=== PATIENT | female | born 1965 | race Caucasian/White ===

== ENCOUNTER 2021-07-02 13:59 | Inpatient (IN) | payer OTHER ==
[~2021-07-02] VITALS: Ht 172.7 cm; Wt 105.6 kg
--- NOTE | ~2021-07-02 | DS ---
[facility] [address], [place] [address] Draft ADMISSION DATE: 07/02/2021 DISCHARGE DATE: 07/07/2021 REASON FOR ADMISSION: This 56-year-old white woman is admitted with small-bowel obstruction. HISTORY OF PRESENT ILLNESS: The patient lives in [place], having moved here from [place] a number of weeks ago. She works at a [email or web address]. The patient has a distant history of ileocolectomy at age 16 for what was described as Crohn disease. She did not have extensive medical therapy after that due to numerous social disruptions at that time. A year ago in [place], she had a bowel obstruction in the distal small bowel at the ileocolic anastomosis. From everything I can gather she was treated conservatively ultimately undergoing colonoscopy with dilation of the stricture. She was postulated not to have had Crohn disease as she had not had ongoing therapy since that time. She now presents with nausea, vomiting and abdominal distention. A CT scan finding showing small bowel obstruction likely located at the ileocolic anastomosis from the past. Special note is made of very dense changes at that site consistent with anastomotic clips. PERTINENT PHYSICAL EXAMINATION: GENERAL: Somewhat obese white woman, BMI 35.4. NECK: Trachea midline. CHEST: Clear, nasogastric tube decompression of bilious fluid. ABDOMEN: A low paramedian incision is noted on the right side. She did not have generalized peritonitis. There is mild tenderness in the right lower abdomen. LABORATORY STUDIES: Showed a white count of 11.7, hematocrit 41.0, platelets 361,000. HOSPITAL COURSE: She was admitted, given intravenous fluid resuscitation, parental pain medication, was started on hydrocortisone 100 mg IV q.8 hours on the presumption this may represent a Crohn related stricture. Notes from her hospitalization in [place] were ultimately obtained. Unfortunately, pathology report and operative report were never forwarded. The patient had persistent abdominal pain and findings consistent with obstruction but improved over time. She was given prophylaxis against deep venous thrombosis on the basis of increased risk of thrombotic complications related to inflammatory bowel disease. A CRP had been obtained, which was greater than 5 (five times normal than PATIENT NAME: ROBBI MARTÍNEZ DISCHARGE SUMMARY DATE OF : 65 REPORT #: [id number] PHYSICIAN: KATHY DAVIDSON MD PCP: TAWANNA SAUCEDO MD REPORT IS CONFIDENTIAL AND NOT TO BE RELEASED WITHOUT AUTHORIZATION [facility] [address], [place] [address] Draft usual). Notably her COVID test was negative. Liver enzymes were normal. Renal function normal. Subsequent imaging studies showed improvement of her obstructive process. A small-bowel follow-through was obtained which showed passage of contrast through the entire small bowel and into the colon and showing the area of anastomotic stricture. It did not appear to be lengthy and narrowed and may represent a stricture from scarring or mechanical means rather than inflammatory lesion that would be more consistent with Crohn disease. She was advanced in her diet, ultimately to a low fiber diet which she tolerated well. By day of discharge, she is ambulating well, tolerating a low-fiber diet, is taking prednisone 20 mg daily and mesalamine 800 mg p.o. t.i.d. Ulcer prophylaxis with Protonix was also undertaken. It is my intention that she undergo colonoscopy in a few weeks down the road to better characterize the ileocolic anastomosis, specifically to assess for active Crohn disease versus simple scarring or mechanical obstruction otherwise. Balloon dilation had been undertaken in [place] a year ago and was apparently durably beneficial. Although this is an option, I think it is more likely she will need additional resection of the ileocolic anastomosis and perhaps application of a site and anastomosis. We have discussed this in detail. At discharge, she is recommended to maintain a low-fiber diet for the time being. I will be seen back in the office in about four weeks at which point, we will schedule for colonoscopy. If she has symptoms that recur in the meantime, she will let me know. I have emphasized to her it is important that she maintain Protonix while she is taking the Prilosec and she will be maintaining mesalamine in the meantime. DISCHARGE MEDICATIONS: 1. Include Tylenol 1000 mg p.o. q.6 hours as needed for pain #60. 2. Protonix, Pantoprazole 40 mg p.o. daily #30, refill 4. 3. Mesalamine (Delzicol 400 mg tablets two tablets p.o. t.i.d.) . 4. Prednisone 20 mg daily for two weeks, 10 mg daily for two weeks, then 10 mg every other day and then discontinue. She will continue with sertraline 25 mg p.o. daily and will discontinue Naprosyn. DISCHARGE DIAGNOSES: 1. 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 2. History of ileocolectomy, age 16, [place], presumably related to Crohn disease. 3. History of small bowel obstruction one year ago requiring colonoscopy balloon dilation of anastomosis without treatment for Crohn disease. PATIENT NAME: ROBBI MARTÍNEZ DISCHARGE SUMMARY DATE OF : 65 REPORT #: [id number] PHYSICIAN: KATHY DAVIDSON MD PCP: TAWANNA SAUCEDO MD REPORT IS CONFIDENTIAL AND NOT TO BE RELEASED WITHOUT AUTHORIZATION [facility] [address] [place], [place] [address] Draft 4. History of thyroid nodules (as yet unevaluated by me). MD FRANKLIN Willis/ROLANDO /[id number] cc: MD Dwight Omalley MD Copies: TAWANNA SAUECDO MD, WILLIAM S MD ~ PATIENT NAME: ROBBI MARTÍNEZ DISCHARGE SUMMARY DATE OF : 65 REPORT #: [id number] PHYSICIAN: KATHY DAVIDSON MD PCP: TAWANNA SAUCEDO MD REPORT IS CONFIDENTIAL AND NOT TO BE RELEASED WITHOUT AUTHORIZATION
[2021-07-02] MEDS ORDERED: ZOLOFT25 MG PO (20:22)
--- NOTE | 2021-07-02 21:00 | NUR ---
PT HOB ELEVATED . ON ROOM AIR, LUNGS CLEAR BILAT, NO COUGH NOTED AT THIS. TIME. R NARE NGT TO LIWS, DRAINING BROWN THICK DRAINAGE. PT COOPERATIVE, NPO, DOES OWN MOUTH CARE. ABD SOFT, AMY BOWEL TONES AUSCULTATED. IVF INFUSING LAC, EDEMA TO LE, LELEVATED. COOPERATIVE. USES CALL LIGHT
--- NOTE | 2021-07-02 21:12 | NUR ---
MEDICATED WITH DILAUDID 0.5MG IV 08/[address] LETY YUSUF
--- NOTE | 2021-07-02 22:29 | NUR ---
Dr Aguiar called via phone med clarification. pt received solucortef 100mg IV in ED at 1955, and new orders to give at 0 were written again. "No, dont give it now, give 8 hrs after first dose was given", Talked to Donna Telepharmacist via phone and order relied, order changed as per clarification.
--- NOTE | 2021-07-02 22:42 | NUR ---
MEDICATED WITH BENADRYL 25MG IV C/O INSOMNIA
--- NOTE | 2021-07-02 23:47 | NUR ---
IN TO ASSIST PT TO THE TOILET, SBA IV POLE, NG TUBE AND SUCTION REMAINS IN PLACE, NO FURTHER NEEDS AT THIS TIME
--- NOTE | 2021-07-03 01:11 | NUR ---
PT ON ROOM AIR, R NARE NGT TO LIWS, DRAINING SMALL AMOUNT OF BROWN THICK DRAINAGE. NO FURTHER C/O ABD PAIN, NO EMESIS, IVF INFUSING W/O PROBLEMS. SCDS IN PLACE, CALL LIGHT AT HANDS REACH
--- NOTE | 2021-07-03 02:29 | NUR ---
AWAKE, BENADRYL PARTIALLY EFFECTIVE GIVEN EARLIER FOR INSOMNIA. C/O 10/23 ABD PAIN, MEDICATED WTIH TORADOL 30MG IV PER PAIN. ON ROOM AIR, LUNGS CLEAR, RNARE NGT TO LIWS, DRAINING SMALL AMOUNT OF BROWINING RED DRAINAGE. SCDS IN PLACE, IVF INFUSING, NO EMESIS. ON CLEAR LIQUIDS, ICE CHIPS GIVE, TOLERATING WELL
--- NOTE | 2021-07-03 04:30 | NUR ---
Pt has slept off and on, on room air, R nare NGT to LIWS draining dark brown/reddish thick drainage. c/o abd pain, ilya, tender, soft, was medicated with toradol and dilaudid with good pain relief. IVF infusing w/o problems, scds in place, Up to br with 1PSBA, voided QS yellow urine and back to bed. tolerated well, was NPO did own mouth care, on ice chips, tolerating well. alert and orineted, cooperative with assessments
--- NOTE | 2021-07-03 06:14 | NUR ---
AWAKENS EASILY, COOP WITH VITALS, NGT TO LIWS, DRAINING BROWNISH COLORED DRAINAGE. OCC DRY COUGH PRESENT. NO FURTHER C/O ABD PAIN, NPO XCEPT FOR ICE CHIPS, TOLERATING WELL, HOB ELEVATED, SCDS IN PLACE, TURNS AND REPOSITIONS SELF IN BED
--- NOTE | 2021-07-03 07:00 | NUR ---
PT SBA TO TOILET, BM PASSED, RN INFORMED
--- NOTE | 2021-07-03 07:49 | NUR ---
REPORT RECEIVED FROM NIGHT RN - NATHANAEL. RN ROUNDING ON PT, UP TO CHAIR WITH DRUPAL WEB DEVELOPER ASSISTANCE AFTER INC OF BOWEL. BOTH LOOSE LIQUID STOOL WELL HARD FORMED QUARTER ROUND STOOL NOTED IN TOILET. PT IN CHAIR AND RESTING, KUB OBTAINED ALREADY THIS MORNING. PT REQUESTS MORE ICE CHIPS, DRUPAL WEB DEVELOPER CHANGING BED LINENS. CALL LIGHT IN REACH.
--- NOTE | 2021-07-03 09:10 | NUR ---
RN IN ROOM TO ADMINISTER SCHEDULED MEDICATIONS. PT RESTING IN CHAIR UPON ENTRY, WAKES EASILY TO SOUND. PT RATES PAIN HIGH, PRN ADMINISTERED FOR THIS. STATES PAIN IS NOW MORE CRAMPING THAN CONSTANT. NGT IN PLACE, TO SUCTION AND WORKING. ACTIVE BOWEL TONES. PT DENIES FURTHER NEEDS, CALL LIGHT IN REACH.
--- NOTE | 2021-07-03 10:25 | HP ---
[facility] [address], [place] [address] Signed ADMISSION DATE: 07/02/2021 REASON FOR ADMISSION: Distal small-bowel obstruction at ileocolic anastomosis. HISTORY OF PRESENT ILLNESS: This 56-year-old white woman has moved to the [facility] about a month ago to take care of her ailing parents, one of which is her mother who suffered a rather profound stroke with right-sided hemiplegia. 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 She has since taken up work at the [employer] locally. She has had several days of feeling poorly including nausea and vomiting and abdominal pain. She presented to the emergency room where she was evaluated by Dr. Fajardo. She was clinically found to have findings consistent with small bowel obstruction. A CT scan was obtained, which showed proximal dilation of small bowel with the transition point at a previous ileocolic anastomosis in the right lower abdomen. Of special note, she was said to have "Crohn's disease" at age 16 in [place] at which time she underwent resection. She did not have medicine other than steroids at that time; her parents were going through a divorce and she says she was "lost in the shuffle" of that. Over the many years since that time, now 40 years indeed, she has had no profound symptoms of inflammatory bowel disease per se. One year ago in [place], she did have small bowel obstruction which she says "was worse than this" for which she underwent bowel decompression, IV fluids administration, and so on. A colonoscopy was performed at that time. She says that she was accompanied by an interpretation that she "did not have Crohn's disease." She underwent a balloon dilation of the anastomotic stricture from what she tells me. This did help her quite a bit. PAST MEDICAL HISTORY: Does include nephrolithiasis in the past. She has had no other operations. She denies any other medical problems, specifically no hypertension, diabetes, or other similar problems. SOCIAL HISTORY: She is not . She is now living in [place] caring for her aged parents as previously noted. She is working concurrently at the [employer] Electronically Signed By: KATHY DAVIDSON MD 07/03/21 1025 PATIENT NAME: ROBBI MARTÍNEZ HISTORY AND PHYSICAL DATE OF : 65 REPORT #: [id number] PHYSICIAN: KATHY DAVIDSON MD PCP: NO PRIMARY CARE PHYSICIAN REPORT IS CONFIDENTIAL AND NOT TO BE RELEASED WITHOUT AUTHORIZATION [facility] [address], [place] [address] Signed locally. MEDICATIONS: She takes no medications on a daily basis. REVIEW OF SYSTEMS: She denies any shortness of breath or chest pain. The nasogastric tube is somewhat uncomfortable, but has been somewhat beneficial in decompressing her GI tract obviously. She has no chest pain. She denies any lower extremity problem. She has vague abdominal pain poorly localized. PHYSICAL EXAMINATION: GENERAL: This is an obese white woman. BMI 35.4. A nasogastric tube shows drainage of white bilious fluid. Trachea is midline. Chest shows normal respiratory excursion without tachypnea. HEART: Regular. ABDOMEN: Quite obese, but soft. There is a low midline incision somewhat to the right of the midline. Abdominal palpation shows no sign of peritonitis. There is mild tenderness in the right lower abdomen. No palpable masses noted. I detect no ascites. EXTREMITIES: Show no clubbing, cyanosis, or edema. LABORATORY DATA: From the emergency room showed a white count of 11.7, hematocrit 41.0, platelets 361,000. Chem 20 is normal. Albumin 4.2, lipase 55. Liver enzymes normal. Creatinine 0.86. Urinalysis was small ketones, otherwise normal. Serology shows negative for COVID and RSV. Her imaging studies were reviewed in detail. The transition point (anastomosis) appears to have been a stapled one as radiodense. Findings are noted at the anastomotic site, which appears to be an end-to-side ileocolostomy. There were no other findings notably. A small hiatal hernia is seen. Small bowel obstruction has confirmed small amount of pelvic fluid. The bladder appears normal. 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 She has diverticulosis of the sigmoid colon. It no comment is made by the radiologist regarding pelvic organs, though I do believe I see the uterus, which is relatively small, image 128. ASSESSMENT: The patient has a recurrent small-bowel obstruction at the area of a previous ileocolic anastomosis. She is purported to have had Crohn's disease in her teenage years and a similar episode a year ago in [place], which was treated conservatively and with colonoscopy which is said to have not demonstrated active Crohn's disease and had been successfully dilated with balloon dilation from what I gather. I am treating the patient as if this is a recurrent Crohn's disease problem at this Electronically Signed By: KATHY DAVIDSON MD 07/03/21 1025 PATIENT NAME: ROBBI MARTÍNEZ HISTORY AND PHYSICAL DATE OF : 65 REPORT #: [id number] PHYSICIAN: KATHY DAVIDSON MD PCP: NO PRIMARY CARE PHYSICIAN REPORT IS CONFIDENTIAL AND NOT TO BE RELEASED WITHOUT AUTHORIZATION [facility] [address] [place], [place] [address] Signed time; this will include hydrocortisone 100 mg IV q.8 hours as well as ulcer prophylaxis on that on the basis of steroid use. We will obtain a C-reactive protein and although not distinguishing for Crohn's disease per se, it may give an understanding of her overall extent of inflammation. A nasogastric tube decompression is recommended so as to minimize swallowed air. Additional fluids will be administered and we will assess if spontaneous resolution of the bowel obstruction could be obtained. A repeat colonoscopy with dilation of the anastomosis would be a consideration. However, given the density of the finding at the anastomosis, I suspect strongly that she had a stapled anastomosis which are well known to be more prone to anastomotic stricture over time, particularly in the face of inflammatory bowel disease, as she is purported to have had. She may require ultimately resectional therapy for the obstruction, it depends how things go. Hopefully the site will " open up" and allow for further characterization. There is no urgency for resection at this time of course, and it may be beneficial to see if her previous records from the hospital in [place] can be obtained in particular to confirm or refute the concept of recurrent Crohn's disease. MD FRANKLIN Willis/ROLANDO /[id number] cc: Dwight Fajardo MD Copies: DWIGHT FAJARDO MD ~ Electronically Signed By: KATHY DAVIDSON MD 07/03/21 1025 PATIENT NAME: ROBBI MARTÍNEZ HISTORY AND PHYSICAL DATE OF : 65 REPORT #: [id number] PHYSICIAN: KATHY DAVIDSON MD PCP: NO PRIMARY CARE PHYSICIAN REPORT IS CONFIDENTIAL AND NOT TO BE RELEASED WITHOUT AUTHORIZATION
--- NOTE | 2021-07-03 11:19 | NUR ---
PT CONTINUES TO REST IN CHAIR - STATES PAIN HAS IMPROVED. DENIES QUESTIONS REGARDING PLAN OF CARE AFTER DR. DAVIDSON ROUNDED THIS AM. NG TUBE IN PLACE AND TO SUCTION. PT TOLERATED AM TRAY WITH NO NAUSEA.
--- NOTE | 2021-07-03 12:48 | NUR ---
RN IN ROOM ROUNDING ON PT - PT RESTING IN CHAIR UPON ENTRY WATCHING TV. PT RATES PAIN 5/10 IN THROAT AND ABDOMEN. PRN TORADOL PROVIDED FOR THIS. PT ALSO REQUESTS ICE CHIPS- PROVIDED. DENIES NAUSEA. PT DENIES OTHER NEEDS, CALL LIGHT IN REACH.
--- NOTE | 2021-07-03 13:16 | NUR ---
PT USES CALL LIGHT TO REQUEST HELP TO BATHROOM. PT PRODUCED MEDIUM SIZED BOWEL MOVEMENT THAT WAS BROWN AND PENCILED SIZED. PT BACK TO CHAIR. DENIES FURTHER NEEDS. CALL LIGHT IN REACH. NGT RECONNECTED AND WORKING.
--- NOTE | 2021-07-03 14:30 | NUR ---
RN IN ROOM TO ADMINISTER SCHEDULED MEDICATIONS AND ASSESS PT. PT RESTING IN CHAIR UPON ENTRY. BOWEL TONES LESS ACTIVE THAN PREVIOUS ASSESSMENT ,STOMACH REMAINS TENDER. IV SITE TOLERATING IVF WITHOUT DIFFICULTY. PT VOIDING QS. DENIES NAUSEA. CALL LIGHT IN REACH.
[2021-07-03] MEDS ORDERED: ALEVE220 MG PO (15:48)
[2021-07-03] MEDS ORDERED: TYLENOL EXTRA500 MG PO (15:49)
--- NOTE | 2021-07-03 15:50 | NUR ---
MED REC COMPLETE
--- NOTE | 2021-07-03 15:58 | NUR ---
PT USES CALL LIGHT TO REQUEST PAIN MEDICATION. PT STATES TORODAL DID NOT HELP PAIN, REQUESTS DILAUTED - ADMINSITERED. PT STATES SHE IS EXPERIENCING SOME BURNING IN EPIGASTRIC AREA - "HEARTBURN". NGT IN PLACE AND WORKING. PT DENIES FURTHER NEEDS, CALL LIGHT IN REACH.
--- NOTE | 2021-07-03 17:25 | NUR ---
RN ROUNDING ON PT - UP IN CHAIR RESTING WATCHING TV. PT SIPPING ON BROTH - DENIES NAUSEA. STATES PAIN IS IMPROVED AND TOLERABLE. PT DENIES FURTHER NEEDS, CALL LIGHT IN REACH.
--- NOTE | 2021-07-03 20:33 | NUR ---
pt was up sitting inchair, R nare NGT to [facility], pt has been sipping on broth and ice chips, c/o mild abd pain. medicated with Dilaudid 0.5mg IV. walked to BR, voided large amount of yellow urine, back to bed, tolerated well. HS meds gien at this time her requests and Benadryl 25mg IV given per c/o insomnia at this time her requests, repositioned in bed, HOB elevated, NGT back to [facility], oon room air, lungs clear, abd soft, ilya, tender, SCDS in place. IVF infusing LAC w/o problems. med education on HS meds given, stated understanding. Call does own oral and demian care. Call light and ice chips at hands reach. Pleasant, alert and oriented, cooperative.
--- NOTE | 2021-07-03 22:02 | NUR ---
RESTING, EYES CLOSED, NO DISTRESS, ON ROOM AIR, IVF INFUSING W/O PROBLEMS SCDS IN PLACE, ON. NPO DOES OWN ORAL CARE. USES CALL LIGHT
--- NOTE | 2021-07-04 01:09 | NUR ---
Kali solano NGT to LIWS patent, draining small amounts of brownish thick colored draiange, NPO w ice chips, no emesis. IVF infusing, scds inplace. call light at hands reach
--- NOTE | 2021-07-04 03:09 | NUR ---
resting no distress, on room air, NGT patent, scant amount of brown drainage. IVF infusin, scds inplace. call ligh at bedside
--- NOTE | 2021-07-04 03:32 | NUR ---
Up to br, voided large amounts of clear yellow urine, had small amount of bm. back to bed, tolerated fair, c/o abd pain medicated with Toradol. abd soft, tender faint/hypoactive bowel tones. IVF infusing R tania NGT patent, usesw call light NPO tolerating ice chips
--- NOTE | 2021-07-04 05:59 | NUR ---
c/o feeling nauseated, medicated with zofran 8mg IV
--- NOTE | 2021-07-04 06:03 | NUR ---
On room air, R nare NGT to LIWS draining brown colored thick drainage.NPO xcept ice chips, c/o feeeling nauseated, medicated with zofran 8mg IV. abd soft very AMY bowel tones, had a smear of bm earlier on the shift, voiding QS. Has been medicated with Dilaudid and Toradol per c/o abd pain, effective, on solumedrol therapy. scds in place, IVF infusing w/o problems. alert and orineted, uses call light, SBA in room, up to br several times, tolerated well.
--- NOTE | 2021-07-04 07:21 | NUR ---
REPORT RECEIVED FROM NIGHT RN NATHANAEL - PT RESTING AWAKE IN BED WATCHING TV. C/O NAUSEA AND PAIN, MEDICATION NOT DUE YET. NGT IN PLACE AND WORKING. PT DENIES FURTHER NEEDS. CALL LIGHT IN REACH.
--- NOTE | 2021-07-04 10:00 | NUR ---
RN IN ROOM TO ADMINISTER SCHEDULED MEDICATIONS AND ASSESS PT. PT REQUESTS PRN PAIN MED FOR 6/10 ABD PAIN - ADMINISTERED. BOWEL TONES ACTIVE, MORE ACTIVE THAN PRIOR ASSESSMENT. PT DENIES NAUSEA. NGT IN PLACE - TAPE NEEDED REINFORCED EARLIER TO HOLD IN PLACE. SUCTION IN PLACE, MODERATE OUTPUT, DIFFICULT TO ASSESS COLOR WITH INTAKE. BM PRODUCED THIS MORNING - UNWITNESSED - UNABLE TO ASSESS. 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
--- NOTE | 2021-07-04 11:15 | NUR ---
RN IN ROOM TO REMOVE NG TUBE PER VERBAL ORDERS FROM DR. DAVIDSON. PT TOLERATED WELL - THROAT LOZENGE PROVIDED FOR SORE THROAT. PT STATES PAIN IS IMPROVED AFTER PRN. PLAN TO AMBULATE IN HALLWAY LATER IN DAY, PT AGREES.
--- NOTE | 2021-07-04 14:01 | NUR ---
RN IN ROOM TO ASSESS PT AND ADMINISER SCHEUDLED MEDICATONS. PT RESTING IN BED WATCHING TV. TOLERATED CLEAR LIQ TRAY WITH MINIMAL NAUSEA, BOWELS HYPERACTIVE, PT REQUESTED ZOFRAN - ADMINISTERED. ENCOUARGED AMBULATION BUT PT REQUESTED TO WAIT, WILL FOLLOW UP AGAIN. PT DENIES FURTHER NEEDS, CALL LIGHT IN REACH.
--- NOTE | 2021-07-04 15:47 | NUR ---
PT AMBULATING IN HALLWAY - NAUSEA IMPROVED WITH PRN ZOFRAN - PT REPORTS BOWEL MOVEMENT AND LARGE AMOUNT OF GAS.
--- NOTE | 2021-07-04 19:01 | NUR ---
ASKED PATIENT IF SHE WOULD LIKE TO TAKE A SHOWER SOMETIME TODAY AND SHE SAID SHE MIGHT TAKE ONE TONIGHT.
--- NOTE | 2021-07-04 19:24 | NUR ---
PATIENT AND I WALKED TWO LAPS AROUND MED SURG. ALSO SET HER UP FOR A SHOWER. SHE IS NOW LAYING DOWN AND RELAXING AND WATCHING A TV MOVIE.
--- NOTE | 2021-07-04 20:42 | NUR ---
pt showered, tolerated well, independent inroom. On room air, back in bed. lungs clear bilat, abd sight distentin and c/o abd pain medicated with toradol IV. c/o insomnia, medicated with benadryl 25mg IV. declines scds at this time. tolerating clear liquid diet, IVF infusign w/o problems
--- NOTE | 2021-07-04 22:06 | NUR ---
c/o 05/23 abd cramping and pain, medicated with Dilaudid 0.5mg IV. tolerating liquids well, no emesis. IVF infusing w/o problems. turns and repositions self in bed
--- NOTE | 2021-07-05 00:36 | NUR ---
Pt on room air, got up to br, voided QS, back to bed, resting at this time, eyes closed, no distress IVF infusing w/o problems, scds off her requests. tolerating liquids well, no c/o painor n/v, call light and fluids at bedside
--- NOTE | 2021-07-05 02:17 | NUR ---
Resting, eyes closed, no ditress, onroom air, IVF infusing, turns and repositions self in bed. fluids and call light at bedside
--- NOTE | 2021-07-05 04:14 | NUR ---
PTON ROOM AIR, HAS SLEPT MOST OF THIS SHIFT. ON ROOM AIR, IVF INFUSING W/O PROBLEMS, ABD SOFT, TENDER, AMY, WAS MEDICATED WITH DIULADID AND TORADOL PER ABD PAIN, EFFECTIVE, WITH BENADRYL PER INSOMNIA, EFFECTIVE, DRY COUGH NOTED AT TIMES, UP TO BR W/O ASSIST VOIDING QS. USING CALL LIGHT, AND TOLERATING FLUIDS WELL, NO EMESIS.
--- NOTE | 2021-07-05 06:11 | NUR ---
awakes easily, c/o abd pain cramping, medicated with Dilaudid 0.5mg IV. tolerating liquids well, no emesis, gets up to br w/o assist, voiding QS. uses call light
--- NOTE | 2021-07-05 07:30 | NUR ---
THIS RN RECEIVED SHIFT REPORT FROM JEZ HUFFMAN. PATIENT RESTING QUIETLY IN BED, RESPIRATIONS ARE REGULAR AND EVEN, AND CALL LIGHT IS IN REACH. PATIENT HAS NO OTHER CAREE NEEDS AT THIS TIME.
--- NOTE | 2021-07-05 09:15 | NUR ---
PATIENT GIVEN AM MEDS. PATIENT RESQUESTING SOMETHING FOR GERD BESIDES THE PEPCID SHE IS GETTING AND REQUESTING SOMETHING FOR A COUGH. PATIENT'S ABD PAIN 3/10 AND SHE IS COMFORTABLE AT THAT LEVEL AT THIS TIME. PATIENT SL BY THIS RN AND PATIENT GOING DOWN TO IMAGING. AT THE DICTATION DESK AND THIS RN INFORMED HIM ABOUT THE REQUEST FOR COUGH AND GERD MEDS AND HE SAID HE WOULD LOOK INTO IT AND PUT IN ORDERS.
--- NOTE | 2021-07-05 10:31 | NUR ---
PATIENT REMAINS IN RADIOLOGY AT THIS TIME.
--- NOTE | 2021-07-05 11:35 | NUR ---
ATTEMPTED TO VISIT AND ASSESS PATIENT, PTNATALY IN IMAGINE. WILL FOLLOW UP AT LATER TIME.
--- NOTE | 2021-07-05 12:12 | NUR ---
PATIENT HAS STILL NOT RETURNED FROM RADIOLOGY AT THIS TIME.
--- NOTE | 2021-07-05 13:17 | NUR ---
PATIENT CALLED WITH 5/10 ABD PAIN AND NAUSEA. 0.5MG SIVP DILAUDID AND 8MG ZOFRAN SIVP AND SIVP TORADOL GIVEN BY THIS RN. OTHER SCHEDULED MEDS ALSO GIVEN AND PATIENT TOLERATED THIS WELL. PATIENT DENIED ANY OTHER CARE NEEDS AT THIS TIME. CALL LIGHT IS IN REACH.
--- NOTE | 2021-07-05 13:49 | NUR ---
THIS RN IN TO CHECK ON PATIENT. PATIENT SAYS HER NAUSEA IS GONE AND HER ABD PAIN IS DOWN TO 2/10 AND SHE IS COMFORTABLE WITH THAT. AFTERNOON ASSESSMENT COMPLETE. PATIENT DENIES ANY OTHER CARE NEEDS AT THIS TIME. CALL LIGHT IS IN REACH.
--- NOTE | 2021-07-05 13:58 | NUR ---
Today Korina is found to be awake, alert, and oriented to person, place, and time. She answers questions appropriately. She currently is living with her Father and step-mother and helping care for them. She also recently started a job at [employer], which she feels she will probably loose secondary to missing work. This is a stressor for Korina. She is very happy with her care while here in the hospital, even stating "of all the hospitals I have been to when I am sick, I thinkg I have received the best care at this hospital." Korina is currently waiting on test results, she states "my cramps are not as bad, and I am having a lot of gas and having bowel movements." Korina is hopeful that her health issues will resolve and feels like the current symptoms she is suffering from are probably related to her current life stress situations. She denies questions at this time, and again feels that the staff members have "met" her current needs.
--- NOTE | 2021-07-05 14:24 | NUR ---
PATIENT IN BED WATCHING TV AT THIS TIME. VITALS AND I&O'S CHARTED. FRESH WATER GIVEN. CALL LIGHT IN REACH. NO FURTHER NEEDS AT THIS TIME.
--- NOTE | 2021-07-05 14:54 | NUR ---
PATIENT'S PAIN REMAINS 2/10 AND NAUSEA IS STILL CONTROLLED. PATIENT DENIES ANY OTHER CARE NEEDS FROM THE RN AT THIS TIME.
--- NOTE | 2021-07-05 18:14 | NUR ---
PATIENT INDEPENDENT IN ROOM. VITALS AND I&O'S CHARTED. CALL LIGHT IN REACH. NO FURTHER NEEDS AT THIS TIME.
--- NOTE | 2021-07-05 18:42 | NUR ---
PATIENT HAS BEEN SWITCHED TO ORAL STEROID WHICH WAS JUST GIVEN. PATIENT HAD NO C/O N/V AND IS TALKING ON HER CELL PHONE AT THIS TIME. CALL LIGHT IN REACH AND NO OTHER CARE NEEDS NOTED AT THIS TIME.
--- NOTE | 2021-07-05 19:31 | NUR ---
RECEIVED REPORT. PATIENT ALERT AND ORIENTED. PATIENT VOICED PAIN 2 OUT OF 10 WITH ABDOMINAL CRAMPING. IV DC'D WITHIN NORMAL LIMITS DUE TO LEAKING. PATIENT INDEPENDENT IN ROOM AND SHOWERING. PATIENT DENIES NAUSEA. NO OTHER NEEDS VOICED AT THIS TIME.
--- NOTE | 2021-07-05 20:10 | NUR ---
PHONE CALL TO . TELEPHONE ORDER FOR PO TYLENOL REPEATED BACK TO VERIFY.
--- NOTE | 2021-07-05 21:08 | NUR ---
PATIENT ALERT AND ORIENTED IN BED AFTER SHOWER. ASSESSMENT COMPLETE. VSS. BOWEL TONES ACTIVE. LUNG SOUNDS CLEAR. PATIENT VOICED WANTING TYLENOL AND BENEDRYL PRN. PRN MEDICATIONS ADMINITERED PER EMAR. IV FLUSH 10 ML SALINE. GAVE PATIENT ICE CREAM AND ICE WATER PER REQUEST. NO OTHER NEEDS VOICED AT THIS TIME. CALL LIGHT WITHIN REACH.
--- NOTE | 2021-07-05 23:22 | NUR ---
CHECKED ON PATIENT. PATINET RESTING IN BED WITH LIGHTS OFF. CALL LIGHT WITHIN REACH.
--- NOTE | 2021-07-06 01:15 | NUR ---
NEW BAG IVF INFUSING WNL. pt BACK IN BED AFTER AMBULATING TO RESTROOM INDEPENDNETLY FOR VOID AND LOOSE STOOL. LIGHTS OFF IN ROOM. NO ADDITIONAL REQUESTS.
--- NOTE | 2021-07-06 01:17 | NUR ---
ANSWERED CALL LIGHT. PATIENT REQUESTED WIPES FOR RESTRROM. WIPES PROVIDED. REFILLED ICE WATER AND HUNG NEW BAG OF LR. PATIENT AMBULATED TO RESTROOM. BREATHING EVEN AND UNLABORED. PATIENT DENIES PAIN OR NAUSEA. NO OTHER NEEDS VOICED AT THIS TIME. CALL LIGHT WITHIN REACH.
--- NOTE | 2021-07-06 02:53 | NUR ---
ANSWERED CALL LIGHT. PATIENT COMPLAINED OF HEART BURN. OFFERED MILK AND SUGGESTED PATIENT SIT UP IN BED. PATIENT DECLINED MILK. ADMINISTERED PRN RX PER EMAR. PROVIDED HEAT PAD FOR ABDOMEN. ASSESSMENT COMPLETE. BREATHING EVEN AND UNLABORED. BOWEL TONES PRESENT. NO OTHER NEEDS VOICED AT THIS TIME. CALL LIGHT WITHIN REACH.
--- NOTE | 2021-07-06 04:48 | NUR ---
CALL LIGHT ANSWERED. pt IN RESTROOM INDEPENDENTLY. NEW GOWN PROVIDED REQUESTED. NO ADDITIONAL NEEDS.
--- NOTE | 2021-07-06 05:06 | NUR ---
PATIENT ALERT AND ORIENTED. VSS. BREATHING EVEN AND UNLABORED. PROVIDED NEW HEAT PAD TO PATIENT. NO OTHER NEEDS VOICED AT THIS TIME. CALL LIGHT WITHIN REACH.
--- NOTE | 2021-07-06 05:49 | NUR ---
PATIENT ON ROOM AIR. IV INFUSING WNL. TYLENOL FOR PAIN AND BENADRYL FOR INSOMNIA ADMINSTERED PRN RX AT 21:00. 4 MG ZOFRAN ADMINISTERED IV TO HELP WITH HEARTBURN AT 02:50. PATIENT WAS UP AMBULATING TO RESTROOM W/O ASSIST OFTEN THROUGHOUT SHIFT. BOWEL TONES PRESENT. VOIDING QS. VSS. USING CALL LIGHT APPROPRIATELY. TOLERATING FULL LIQUID DIET WELL. CALL LIGHT WITHIN REACH.
--- NOTE | 2021-07-06 06:52 | NUR ---
pt AWAKE TALKING ON PHONE. ICE WATER REFILLED. SCHEDULED PO MEDICATION ADMINISTERED. DIFFICULTY OBTAINING HOSPITAL RECORDS, pt STATES SHE SAW OTILIO [employer] IN [place], IN AT [facility] AND HAD THE COLONOSCOPY IN [place], IN AT [facility]. 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 CALL LIGHT IN REACH.
--- NOTE | 2021-07-06 06:53 | NUR ---
PATIENT AWAKE AND ORIENTED. MESALAMINE ADMINISTERED PER EMAR. NO OTHER NEEDS VOICED AT THIS TIME. CALL LIGHT WITHIN REACH.
--- NOTE | 2021-07-06 07:30 | NUR ---
THIS RN RECEIVED SHIFT REPORT FROM JEZ MUNOZ. PATIENT IN BED ON HER PHONE AND DENIES ANY NURSING CARE NEEDS AT THIS TIME. CALL LIGHT IS IN REACH.
--- NOTE | 2021-07-06 09:10 | NUR ---
THIS RN AND RUSSELL NURSE STUDENT IN TO SEE PATIENT. PATIENT DENIES NAUSEA AND PAIN. AM MEDS PASSED AND AM ASSESSMENT COMPLETE AND CHARTED. PATIENT ATE 40% OF HER BREAKFAST AND HAD US TAKE OUT HER TRY. PATIENT DENIED ANY OTHER CARE NEEDS AT THIS TIME. CALL LIGHT IS IN REACH.
--- NOTE | 2021-07-06 10:05 | NUR ---
PATIENT IN BED RESTING AT THIS TIME. VITALS AND I&O'S CHARTED. PATIENT INDEPENDENT IN ROOM, AM CARE AND ORAL CARE SUPPLIES PROVIDED. CALL LIGHT IN REACH. NO FURTHER NEEDS AT THIS TIME.
--- NOTE | 2021-07-06 10:35 | NUR ---
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 A follow-up appt has been scheduled with Dr. Gu for July 13 at 11:00, the chart will be changed to include Dr. Gu as patient PCP so that all records will be sent to his office for patient follow-up. Patient made aware of this plan and agrees.
--- NOTE | 2021-07-06 11:01 | NUR ---
PATIENT GIVEN HER 11AM MEDS. PATIENT DENIES ANY CARE NEEDS EXCEPT FOR WANTING FRESH ICEWATER WHICH WAS GIVEN. CALL LIGHT IS IN REACH.
--- NOTE | 2021-07-06 13:05 | NUR ---
PATIENT RESTING QUIETLY SITTING IN BED WATCHING TV AND ON THE PHONE. PATIENT DENIES ANY CARE NEEDS AT THIS TIME. CALL LIGHT IN REACH.
--- NOTE | 2021-07-06 14:04 | NUR ---
THIS RN IN TO SALINE LOCK PATIENT'S IV WHICH WAS DONE. IV FLUIDS HAVE BEEN DC'D. PATIENT'S FOOD TRAY WAS TAKEN OUT. PATIENT HAS 2/10 PAIN AND IS COMFORTABLE AND HAS NO NAUSEA AT THIS TIME. AFTERNOON ASSESSMENT COMPLETE. PATIENT HAS NO CARE NEEDS AT THIS TIME. FOOD TRAY TAKEN OUT. CALL LIGHT IS IN REACH.
--- NOTE | 2021-07-06 15:48 | NUR ---
THIS RN IN TO GIVE 1600 MEDS. PATIENT TOOK MEDICATION WITHOUT DIFFICULTY AND INFORMED THIS RN SHE IS COMFORTABLE AT THIS TIME. CALL LIGHT IS IN REACH AND NO OTHER CARE NEEDS AR NOTED AT THIS TIME.
--- NOTE | 2021-07-06 17:55 | NUR ---
PATIENT SITTING UP IN BED WATCHING TV. VITALS AND I&O'S CHARTED. FRESH WATER GIVEN. CALL LIGHT IN REACH. NO FURTHER NEEDS AT THIS TIME.
--- NOTE | 2021-07-06 18:23 | NUR ---
THIS RN CHECKED IN WITH PATIENT AND PATIENT DENIED ANY CARE NEEDS AT THIS TIME. PATIENT JUST SAYS SHE IS BORED. PATIENT SAYS SHE TOLERATED THE LOW FIBER DIET FOR DINNER WELL AND SAYS,"I'M DOING OK RIGHT NOW". CALL LIGHT IN REACH. PATIENT HAS NO OTHER CARE NEEDS AT THIS TIME.
--- NOTE | 2021-07-06 19:15 | NUR ---
REPORT RECEIVED FROM JEZ MARTINEZ. ASSUMED CARE OF pt.
--- NOTE | 2021-07-06 19:26 | NUR ---
SHIFT REPORT GIVEN TO JEZ MUNOZ. PATIENT RESTNG QUIETLY IN BED AND HAS NO CARE NEEDS AT THIS TIME. CALL LIGHT IS IN REACH.
--- NOTE | 2021-07-06 19:26 | NUR ---
RECIEVED REPORT. PATIENT ALERT AND ORIENTED. PATIENT DENIES PAIN OR NAUSEA. BREATHING EVEN AND UNLABORED. NO OTHER NEEDS VOICED AT THIS TIME. CALL LIGHT WITHIN REACH.
--- NOTE | 2021-07-06 21:10 | NUR ---
ASSESSMENT COMPLETE. VSS. BOWEL TONES ACTIVE. LUNG SOUNDS CLEAR. PRN RX ADMINISTERED. BREATHING EVEN AND UNLABORED. PATIENT PROVIDED ICE WATER, ICE CREAM, AND HEAT PAD. PATIENT DENIES PAIN AND NAUSEA. PATIENT AMBULATES TO RESTROOM. NO OTHER NEEDS VOICED AT THIS TIME. CALL LIGHT WITHIN REACH.
--- NOTE | 2021-07-06 23:16 | NUR ---
PATIENT RESTING IN BED. BREATHING EVEN AND UNLABORED. NO SIGNS OF DISTRESS. CALL LIGHT WITHIN REACH.
--- NOTE | 2021-07-07 02:56 | NUR ---
CHECKED ON pt. pt RESTING IN BED WITH PILLOW COVERING FACE, BREATHING UNLABORED. NO DISTRESS NOTED.
--- NOTE | 2021-07-07 04:10 | NUR ---
CALL LIGHT ANSWERED. WARM BLANKET PROVIDED. BREAKFAST ORDER TAKEN AT THIS TIME. pt REQUESTING TO REST. LIGHTS OFF IN ROOM. CALL LIGHT IN REACH. NO COMPLAINTS OF PAIN. DECLINES FRESH WARM PACKS.
--- NOTE | 2021-07-07 05:00 | NUR ---
CALL LIGHT ANSWERED, PRN NAUSEA MEDICATION ADMINISTERED REQUESTED. pt STATES "I FEEL NAUSEOUS FROM COUGHING". DRY COUGH NOTED. HOT TEA PROVIDED. VSS. CALL LIGHT IN REACH. NO ADDITIONAL REQUESTS.
--- NOTE | 2021-07-07 05:01 | NUR ---
ANSWERED CALL LIGHT. PATIENT REQUESTED SOMETHING FOR NAUSEA. ADMINISTERED PRN RX. ASSESSMENT COMPLETE. LUNG SOUNDS CLEAR. BOWEL TONES ACTIVE. VSS. PROVIDED PATIENT WITH HOT TEA. PATIENT DENIES PAIN. NO OTHER NEEDS ADRESSED AT THIS TIME. CALL LIGHT WITHIN REACH.
--- NOTE | 2021-07-07 05:53 | NUR ---
PATIENT IS ON ROOM AIR. IV SALINE LOCK. PRN RX ADMINISTERED FOR NAUSEA AND INSOMNIA. TYLENOL PRN ADMINISTERED PER PATIENT REQUEST TO AVOID ANY PAIN. PATIENT IS INDEPENDENT IN ROOM. PATIENT RESTED BETTER TONIGHT COMPARED TO LAST NIGHT. BOWEL TONES ARE PRESENT. LUNG SOUNDS ARE CLEAR. VSS. VOIDING QS. TOLERATING LOW FIBER DIET WELL. USING CALL LIGHT APPROPRIATELY.
--- NOTE | 2021-07-07 06:53 | NUR ---
CHECKED ON PATIENT AND ADMINISTERED RX PER EMAR. PATIENT ALERT AND ORIENTED. PROVIDED PATIENT WITH ICE WATER. NO OTHER NEEDS VOICED AT THIS TIME. CALL LIGHT WITHIN REACH.
--- NOTE | 2021-07-07 08:58 | NUR ---
PT. A & O X 4, RESTING IN BED, STATES SHE IS FEELING BACK TO HER NORMAL, HAD A FORMED BM THIS MORNING, TOLERATING HER DIET WELL. DENIES PAIN AT ALL. WILL CALL FOR NEEDS. INDEPENDENT IN HER ROOM.
--- NOTE | 2021-07-07 09:47 | NUR ---
PT IS SITTING UP IN BED WATCHING TV.I&O AND VS CHARTED CALL LIGHT WITHIN REACH NO FURTHER TASKS AT THIS TIME
--- NOTE | 2021-07-07 10:20 | NUR ---
Spoke with Korina. She plans on dc today. Has had SBO a few times in the past. States she is back to her normal. Denies needs for herself, but states she is overwhelmed with caring for her dad and step mom. Gave infor and phone numbers for her to call [facility] as they are low income. Dr. Aguiar arrived and gave dc instructions and will fu with colonoscopy as an OP. Pt will need a taxi ride home and charge nurse notified.
[2021-07-07] MEDS ORDERED: PANTOPRAZOLE SO40 MG PO (10:57)
[2021-07-07] MEDS ORDERED: ACETAMINOPHEN500 MG PO (10:57)
[2021-07-07] MEDS ORDERED: DELZICOL400 M1 PO (10:58)
[2021-07-07] MEDS ORDERED: PREDNISONE20 MG PO (10:59)
--- NOTE | 2021-07-07 11:54 | NUR ---
REVIEWED DC INSTX AND GAVE APPT. CARDS TO PT. ALL WRITTEN INFO INCLUDED IN PKG, REGARDING DIET AND DISEASE PROCESS. REMOVED IV FROM L ARM, TIP INTACT. PT. WILL TAKE A TAXI TO HER HOME, SHE IS TAKING CARE OF HER ELDERLY PARENTS. ALL BELONGINGS RETURNED.
--- NOTE | 2021-07-07 12:46 | NUR ---
WAITING FOR PHARMACY TO CLEAR PTS. HOME MED AFTER THE TRAUMA CALL
== END 2021-07-07 13:15 | disposition home or self-care (01) | DRG 390 ==
LOC: ED 13:59 → MS 19:28
PROVIDERS: ADMIT Surgery; ATTEND Surgery
DX: K91.30 Postprocedural intestinal obstruction, unspecified as to partial versus complete (principal); Z20.822 Contact with and (suspected) exposure to COVID-19
CPT/HCPCS: 36415; 74018; 74177; 74250; 80048; 80053; 81001; 83690; 85025; 86140; 87502; 96375; 96376; 99285-25; A9270; C9113; C9803; J1170; J1200; J1644; J1720; J1885; J2405; J7030; J7121; J7512; Q9967; U0003